=== PATIENT | male | born 1950 | race Two or more races ===

== ENCOUNTER 2021-12-31 16:49 | Emergency (ER) | payer OTHER ==
[~2021-12-31] VITALS: Ht 175.3 cm; Wt 108.9 kg
--- NOTE | 2021-12-31 17:14 | NUR ---
URINE SAMPLE SENT TO LAB
[2021-12-31 17:54] LABS: BILIRUBIN,URINE NEGATIVE (NEGATIVE); COLOR,URINE YELLOW (YELLOW); LEUKOCYTE ESTERASE ,URINE TRACE (NEGATIVE); NITRITE, URINE NEGATIVE (NEGATIVE); PROTEIN,URINE NEGATIVE (NEGATIVE); UGLUCOSE NEGATIVE (NEGATIVE); UROBILINOGEN,URINE 0.2 EU/dL (0.2)
[2021-12-31 18:06] LABS: BACTERIA,URINE None seen /HPF (None Seen); SQUAMOUS EPITHELIAL CELL,UR 0-2 /HPF (None Seen)
--- NOTE | 2021-12-31 18:32 | NUR ---
PATIENT FEELING WAY BETTER, WILL BE DISCHARGED HOME W/ SAGASTUME CATHETER AND PROVIDED W/ LEG BAG AND NEEDS TO F/U W/ UROLOGIST. DISCHARGED HOME IN STABLE CONDITION.
[2021-12-31 18:34] VITALS: BP 135/92
== END 2021-12-31 18:34 | disposition home or self-care (01) ==
LOC: ER 16:59
DX: R33.9 Retention of urine, unspecified (principal); M19.90 Unspecified osteoarthritis, unspecified site
CPT/HCPCS: 81001

== ENCOUNTER 2022-01-03 14:54 | Emergency (ER) | payer MEDICARE, OTHER ==
[~2022-01-03] VITALS: Ht 175.3 cm; Wt 86.2 kg
--- NOTE | 2022-01-03 15:53 | NUR ---
URINE COLLECTED AND SENT TO LAB
[2022-01-03 16:07] LABS: BILIRUBIN,URINE SMALL (NEGATIVE); LEUKOCYTE ESTERASE ,URINE TRACE (NEGATIVE); NITRITE, URINE NEGATIVE (NEGATIVE); PH,URINE 8.5 (5.0-8.0); PROTEIN,URINE 30 mg/dl (NEGATIVE); UGLUCOSE NEGATIVE (NEGATIVE)
[2022-01-03 16:09] LABS: COLOR,URINE AMBER (YELLOW)
[2022-01-03 16:16] LABS: BACTERIA,URINE None seen /HPF (None Seen); MUCUS,URINE Few /LPF (None Seen); RBC,URINE TOO NUMEROUS TO COUN /HPF (0-2); SQUAMOUS EPITHELIAL CELL,UR 0-2 /HPF (None Seen)
--- NOTE | 2022-01-03 17:37 | NUR ---
Patient discharged to home in stable condition. Written and verbal after care instructions given. Patient verbalizes understanding of instruction.
[2022-01-03 17:38] VITALS: BP 164/81
[2022-01-04] MEDS ORDERED: TAMS-12 PO (08:17)
[2022-01-04] MEDS ORDERED: CIPR-262 PO (08:17)
== END 2022-01-03 17:38 | disposition home or self-care (01) ==
LOC: ER 14:54
DX: T83.031A Leakage of indwelling urethral catheter, initial encounter (principal); M19.90 Unspecified osteoarthritis, unspecified site; Z79.899 Other long term (current) drug therapy; Z87.438 Personal history of other diseases of male genital organs
CPT/HCPCS: 81001

== ENCOUNTER → 2022-01-04 | Emergency (ER) | payer MEDICARE, OTHER ==
[~2022-01-04] VITALS: Ht 175.3 cm; Wt 86.2 kg
[~2022-01-04] MED LIST: CIPR-262 PO; LIDOCAINE 2% JEL UROJET 10 ML MM ONE; TAMS-12 PO
--- NOTE | 2022-01-04 06:23 | NUR ---
f/c Fr 16 inserted clear yellow urine output 450 cc
--- NOTE | 2022-01-04 06:23 | NUR ---
urine collected sent to lab
[2022-01-04 07:20] LABS: CALCIUM, SERUM 9.2 mg/dL (8.5-10.1); POTASSIUM 3.9 mmol/L (3.5-5.1)
[2022-01-04 07:40] LABS: BASOPHILS % (AUTO) 0.8 % (0.0-2.0); EOSINOPHILS % (AUTO) 4.1 % (0.0-6.0); HEMATOCRIT 39 % (39-51); HEMOGLOBIN 13.3 g/dL (13.5-17.5); LYMPHOCYTES # (AUTO) 1.7 K/uL (0.8-4.8); LYMPHOCYTES % (AUTO) 30.6 % (20.0-44.0); MEAN CORPUSCULAR HGB CONC 34 g/dl (31.0-36.0); MEAN CORPUSCULAR VOLUME 92 fL (80-96); MONOCYTES # (AUTO) 0.5 K/uL (0.1-1.30); MONOCYTES % (AUTO) 8.1 % (2.0-12.0); NEUTROPHILS # (AUTO) 3.2 K/uL (1.8-8.9); NEUTROPHILS % (AUTO) 56.4 % (43.0-81.0); PLATELET COUNT (AUTO) 175 K/uL (150-450); RED BLOOD CELL COUNT(AUTO) 4.26 MIL/uL (4.5-6.0); WHITE BLOOD COUNT (AUTO) 5.6 K/uL (4.3-11.0)
[2022-01-04 07:56] LABS: BILIRUBIN,URINE NEGATIVE (NEGATIVE); COLOR,URINE YELLOW (YELLOW); LEUKOCYTE ESTERASE ,URINE NEGATIVE (NEGATIVE); NITRITE, URINE NEGATIVE (NEGATIVE); PROTEIN,URINE NEGATIVE (NEGATIVE); UGLUCOSE NEGATIVE (NEGATIVE); UROBILINOGEN,URINE 0.2 EU/dL (0.2)
[2022-01-04 08:00] LABS: BACTERIA,URINE None seen /HPF (None Seen); RBC,URINE 21-50 /HPF (0-2); SQUAMOUS EPITHELIAL CELL,UR Rare /HPF (None Seen); WBC,URINE 0-2 /HPF (0-3)
--- NOTE | 2022-01-04 08:30 | NUR ---
vazquez bag replaced
--- NOTE | 2022-01-04 08:35 | NUR ---
Patient discharged to home in stable condition. Written and verbal after care instructions given. Patient verbalizes understanding of instruction.
[2022-01-04 08:54] VITALS: BP 148/84
== END | disposition home or self-care (01) ==
LOC: ER 05:59
DX: R33.9 Retention of urine, unspecified (principal); M19.90 Unspecified osteoarthritis, unspecified site; Z79.899 Other long term (current) drug therapy
CPT/HCPCS: 99284; 51702; 85025; 80048; 81001; 36415; J3490

== ENCOUNTER 2022-01-13 11:41 | Emergency (ER) | payer OTHER, MEDICARE ==
[~2022-01-13] VITALS: Ht 175.3 cm; Wt 87.1 kg
[~2022-01-13 11:41] MED LIST changes: -LIDOCAINE 2% JEL UROJET 10 ML MM ONE
[2022-01-13 11:58] VITALS: BP 142/88
--- NOTE | 2022-01-13 12:00 | NUR ---
BIBSELF URINE LEAKING AROUND SAGASTUME CATHETER,INTO HIS UNDERPANTS INSTEAD OF DRAINING INTO SAGASTUME BAG
[2022-01-13] MEDS ORDERED: CIPR500T5 PO (12:07)
--- NOTE | 2022-01-13 12:09 | NUR ---
F.CATHETER REMOVED , URINE SAMPLE OBTAINED LABELED AND SENT TO LAB
--- NOTE | 2022-01-13 12:14 | NUR ---
Patient discharged to home in stable condition. Written and verbal after care instructions given. Patient verbalizes understanding of instruction.
[2022-01-13 12:23] LABS: BILIRUBIN,URINE 2+ (NEGATIVE); COLOR,URINE DARK YELLOW (YELLOW); LEUKOCYTE ESTERASE ,URINE 2+ (NEGATIVE); NITRITE, URINE POSITIVE (NEGATIVE); PROTEIN,URINE 3+ mg/dl (NEGATIVE); UGLUCOSE NEGATIVE (NEGATIVE)
[2022-01-13 12:43] LABS: BACTERIA,URINE Many /HPF (None Seen); CALCIUM OXALATE CRYSTALS,UR Few /HPF (None Seen); RBC,URINE 21-50 /HPF (0-2); SQUAMOUS EPITHELIAL CELL,UR Few /HPF (None Seen)
== END 2022-01-13 12:16 | disposition home or self-care (01) ==
LOC: ER 11:45
DX: T83.9XXA Unspecified complication of genitourinary prosthetic device, implant and graft, initial encounter (principal); R10.2 Pelvic and perineal pain; M19.90 Unspecified osteoarthritis, unspecified site
CPT/HCPCS: 81001; 87086-TC; 87186-TC

== ENCOUNTER 2022-05-12 22:13 | Emergency (ER) | payer MEDICARE, OTHER ==
[~2022-05-12] VITALS: Ht 172.7 cm; Wt 112.5 kg
[~2022-05-12 22:13] MED LIST changes: +CIPR500T5 PO
[2022-05-12] MEDS ORDERED: LIDOCAINE 2% JEL UROJET 10 ML MM ONE ×2 (22:21→22:30)
[2022-05-12 22:24] VITALS: BP 167/140
--- NOTE | 2022-05-12 22:28 | NUR ---
PT BIBSELF C/O URINARY RETENTION SINCE 190 THIS EVENING. PT AAOX4 BREATHING EVENLY AND UNLABORED. PT STATES THAT MOST OF THE DAY HE WAS FEELING WELL AND THEN "SUDDENLY HE WAS UNABLE TO URINATE" PT DOES HAVE BILATERAL LEG SWELLING AND IS HYPERTENSIVE. MD AWARE. PT ATTACHED TO MONITOR AND POX. WILL CONTINUE TO MONITOR.
--- NOTE | 2022-05-12 22:34 | NUR ---
URINE SENT TO LAB
--- NOTE | 2022-05-12 22:40 | NUR ---
800ML URINARY OUTPUT. AWARE.
[2022-05-12 22:51] LABS: BILIRUBIN,URINE NEGATIVE (NEGATIVE); COLOR,URINE OTHER (YELLOW); LEUKOCYTE ESTERASE ,URINE NEGATIVE (NEGATIVE); NITRITE, URINE NEGATIVE (NEGATIVE); PH,URINE 5.5 (5.0-8.0); PROTEIN,URINE NEGATIVE (NEGATIVE); UGLUCOSE NEGATIVE (NEGATIVE); UROBILINOGEN,URINE 0.2 EU/dL (0.2)
--- NOTE | 2022-05-12 23:22 | NUR ---
Patient discharged to home in stable condition. Written and verbal after care instructions given. Patient verbalizes understanding of instruction. pT ambulatory with a steady gait. PT SENT HOME WITH INDWELLING SAGASTUME CATH AND LEG BAG. PT EDUCATED HOW TO EMPTY LEG BAG.
[2022-05-12 23:52] LABS: BACTERIA,URINE Rare /HPF (None Seen); RBC,URINE 21-50 /HPF (0-2); SQUAMOUS EPITHELIAL CELL,UR Rare /HPF (None Seen); WBC,URINE 0-2 /HPF (0-3)
== END 2022-05-12 23:22 | disposition home or self-care (01) ==
LOC: ER 22:15
DX: N40.1 Benign prostatic hyperplasia with lower urinary tract symptoms (principal); R33.9 Retention of urine, unspecified; Z79.899 Other long term (current) drug therapy
CPT/HCPCS: 99284; 51702; 81001; J3490

== ENCOUNTER 2022-05-17 21:57 | Emergency (ER) | payer MEDICARE ==
[~2022-05-17] VITALS: Ht 175.3 cm; Wt 86.2 kg
[2022-05-17 23:50] VITALS: BP 140/91
[2022-05-18 01:20] LABS: BILIRUBIN,URINE 1+ (NEGATIVE); COLOR,URINE RED (YELLOW); LEUKOCYTE ESTERASE ,URINE TRACE (NEGATIVE); NITRITE, URINE POSITIVE (NEGATIVE); PROTEIN,URINE 3+ mg/dl (NEGATIVE); UGLUCOSE TRACE mg/dL (NEGATIVE)
[2022-05-18 01:23] LABS: BACTERIA,URINE Few /HPF (None Seen); RBC,URINE TOO NUMEROUS TO COUN /HPF (0-2); SQUAMOUS EPITHELIAL CELL,UR Few /HPF (None Seen)
[2022-05-18] MEDS ORDERED: CEPH500C2 PO (01:33)
[2022-05-18] MEDS ORDERED: CEPHALEXIN MONOHYDRATE 500 MG CAPSULE PO ONE ×2 (01:37→02:00)
== END 2022-05-18 02:09 | disposition home or self-care (01) ==
LOC: ER 22:01
DX: T83.098A Other mechanical complication of other urinary catheter, initial encounter (principal); N39.0 Urinary tract infection, site not specified; Z79.899 Other long term (current) drug therapy
CPT/HCPCS: 81001; 87086-TC

== ENCOUNTER 2022-05-28 17:51 | Emergency (ER) | payer MEDICARE ==
[~2022-05-28] VITALS: Ht 175.3 cm; Wt 87.5 kg
[~2022-05-28 17:51] MED LIST changes: +CEPH500C2 PO
[2022-05-28 18:23] VITALS: BP 146/75
--- NOTE | 2022-05-29 00:37 | NUR ---
Patient discharged to home in stable condition. Written and verbal after care instructions given. Patient verbalizes understanding of instruction.
== END 2022-05-29 00:38 | disposition home or self-care (01) ==
LOC: ER 17:56
DX: Z44.8 Encounter for fitting and adjustment of other external prosthetic devices (principal); N40.1 Benign prostatic hyperplasia with lower urinary tract symptoms; Z79.899 Other long term (current) drug therapy

== ENCOUNTER 2023-01-26 04:18 | Emergency (ER) | payer MEDICARE ==
[~2023-01-26] VITALS: Ht 177.8 cm; Wt 90.7 kg
[2023-01-26 04:26] VITALS: BP 154/88; TEMP 98.8
[2023-01-26] MEDS ORDERED: KETOROLAC TROMETHAMINE 15 MG/ML VIAL IV ONE (05:00)
[2023-01-26] MEDS ORDERED: LIDOCAINE VISCOUS 2% UD 15 ML UDC MM ONE (05:00)
[2023-01-26] MEDS ORDERED: MAG HYDROX/AL HYDROX/SIMETH 30 ML UDC PO ONE (05:00)
[2023-01-26] MEDS ORDERED: FAMOTIDINE/PF INJ 20 MG/2 ML VIAL IV ONE (05:00)
[2023-01-26] MEDS ORDERED: IV NS 0.9% 1,000 ML BAG IV ONE (05:00)
[2023-01-26 05:01] VITALS: O2SAT 98
[2023-01-26 05:09] LABS: APPEARANCE,URINE CLEAR (CLEAR); BILIRUBIN,URINE NEGATIVE (NEGATIVE); BLOOD, URINE NEGATIVE Ery/uL (NEGATIVE); COLOR,URINE YELLOW (YELLOW); KETONES,URINE NEGATIVE (NEGATIVE); LEUKOCYTE ESTERASE ,URINE NEGATIVE (NEGATIVE); NITRITE, URINE NEGATIVE (NEGATIVE); PROTEIN,URINE NEGATIVE (NEGATIVE); UGLUCOSE NEGATIVE (NEGATIVE); UROBILINOGEN,URINE 0.2 EU/dL (0.2)
[2023-01-26] MEDS ORDERED: FINA5TAB11 PO (05:20)
== END 2023-01-26 05:01 | disposition home or self-care (01) ==
LOC: ER 04:20
DX: R33.9 Retention of urine, unspecified (principal); N40.0 Benign prostatic hyperplasia without lower urinary tract symptoms; F17.200 Nicotine dependence, unspecified, uncomplicated; Z79.899 Other long term (current) drug therapy

== ENCOUNTER 2023-02-07 22:25 | Emergency (ER) | payer MEDICARE ==
[~2023-02-07] VITALS: Ht 177.8 cm; Wt 90.7 kg
[~2023-02-07 22:25] MED LIST changes: +FINA5TAB11 PO
[2023-02-08 02:06] LABS: APPEARANCE,URINE TURBID (CLEAR); BILIRUBIN,URINE NEGATIVE (NEGATIVE); BLOOD, URINE 3+ Ery/uL (NEGATIVE); COLOR,URINE DARK YELLOW (YELLOW); KETONES,URINE NEGATIVE (NEGATIVE); LEUKOCYTE ESTERASE ,URINE 2+ (NEGATIVE); NITRITE, URINE POSITIVE (NEGATIVE); PROTEIN,URINE 3+ mg/dl (NEGATIVE); UGLUCOSE NEGATIVE (NEGATIVE)
[2023-02-08 02:07] LABS: ADD URINE CULTURE YES; BACTERIA,URINE Many /HPF (None Seen); SQUAMOUS EPITHELIAL CELL,UR Few /HPF (None Seen); WBC,URINE TOO NUMEROUS TO COUN /HPF (0-3)
[2023-02-08] MEDS ORDERED: CEFD300C3 PO (02:24)
[2023-02-08] MEDS ORDERED: CEFTRIAXONE 1GM BAG (ER ONLY) 1 GM/50 ML PIGGYBACK IV ONE (02:30)
[2023-02-08] MEDS ORDERED: CEFTRIAXONE 1GM BAG (ER ONLY) 50 ML IV ONE (02:37)
[2023-02-08 03:57] VITALS: BP 136/78; TEMP 98.6; O2SAT 99
== END 2023-02-08 03:58 | disposition home or self-care (01) ==
LOC: ER 22:36
DX: N39.0 Urinary tract infection, site not specified (principal); N40.0 Benign prostatic hyperplasia without lower urinary tract symptoms; F17.200 Nicotine dependence, unspecified, uncomplicated; Z79.899 Other long term (current) drug therapy
CPT/HCPCS: 99284; 96365; 87086; 81001; J7030; J0696

== ENCOUNTER 2023-02-16 23:19 | Emergency (ER) | payer MEDICARE ==
[~2023-02-16] VITALS: Ht 172.7 cm; Wt 95.3 kg
[~2023-02-16 23:19] MED LIST changes: +CEFD300C3 PO
[2023-02-17 00:32] LABS: BASOPHILS % (AUTO) 0.4 % (0.0-2.0); EOSINOPHILS # (AUTO) 0.1 K/uL (0.0-0.7); HEMATOCRIT 43 % (39-51); HEMOGLOBIN 14.3 g/dL (13.5-17.5); LYMPHOCYTES # (AUTO) 0.7 K/uL (0.8-4.8); LYMPHOCYTES % (AUTO) 8.9 % (20.0-44.0); MEAN CORPUSCULAR HEMOGLOBIN 31 PG (26.0-33.0); MEAN CORPUSCULAR HGB CONC 34 g/dl (31.0-36.0); MEAN CORPUSCULAR VOLUME 93 fL (80-96); MONOCYTES # (AUTO) 0.1 K/uL (0.1-1.30); MONOCYTES % (AUTO) 1.3 % (2.0-12.0); NEUTROPHILS # (AUTO) 6.6 K/uL (1.8-8.9); NEUTROPHILS % (AUTO) 88.4 % (43.0-81.0); PLATELET COUNT (AUTO) 163 K/uL (150-450); RED BLOOD CELL COUNT(AUTO) 4.59 MIL/uL (4.5-6.0); RED CELL DISTRIBUTION WIDTH 13.9 % (11.5-15.0); WHITE BLOOD COUNT (AUTO) 7.4 K/uL (4.3-11.0)
[2023-02-17 00:33] LABS: APPEARANCE,URINE TURBID (CLEAR); BILIRUBIN,URINE 1+ (NEGATIVE); BLOOD, URINE 3+ Ery/uL (NEGATIVE); COLOR,URINE AMBER (YELLOW); KETONES,URINE NEGATIVE (NEGATIVE); LEUKOCYTE ESTERASE ,URINE TRACE (NEGATIVE); NITRITE, URINE NEGATIVE (NEGATIVE); PH,URINE 6.5 (5.0-8.0); PROTEIN,URINE 2+ mg/dl (NEGATIVE); UGLUCOSE NEGATIVE (NEGATIVE)
[2023-02-17 00:36] LABS: ADD URINE CULTURE NO; BACTERIA,URINE Few /HPF (None Seen); CALCIUM, SERUM 9.5 mg/dL (8.5-10.1); CREATININE 0.7 mg/dL (0.6-1.3); POTASSIUM 4.1 mmol/L (3.5-5.1); SQUAMOUS EPITHELIAL CELL,UR Rare /HPF (None Seen)
[2023-02-17 00:42] LABS: BILIRUBIN,DIRECT 0.3 mg/dL (0.0-0.2); TOTAL PROTEIN, SERUM 7.6 g/dL (6.4-8.2)
[2023-02-17] MEDS ORDERED: CIPROFLOXACIN HCL 500 MG TABLET PO ONE (04:00)
[2023-02-17] MEDS ORDERED: CIPROFLOXACIN HCL 500 MG TABLET ONE (04:06)
[2023-02-17] MEDS ORDERED: CIPR-262 PO (04:15)
[2023-02-17 04:48] VITALS: BP 136/87; TEMP 98; O2SAT 100
== END 2023-02-17 04:48 | disposition home or self-care (01) ==
LOC: ER 23:30
DX: N39.0 Urinary tract infection, site not specified (principal); I10 Essential (primary) hypertension; N40.0 Benign prostatic hyperplasia without lower urinary tract symptoms; F17.200 Nicotine dependence, unspecified, uncomplicated; Z79.899 Other long term (current) drug therapy
CPT/HCPCS: 36415; 80048-TC; 80076-TC; 81001; 85025-TC; 87086-TC

== ENCOUNTER 2023-05-26 19:50 | Emergency (ER) | payer MEDICARE ==
[~2023-05-26] VITALS: Ht 172.7 cm; Wt 64.9 kg
[2023-05-26 21:28] VITALS: TEMP 98.8
[2023-05-26] MEDS ORDERED: TAMS-12 PO (21:53)
[2023-05-26 22:32] LABS: APPEARANCE,URINE CLEAR (CLEAR); BILIRUBIN,URINE NEGATIVE (NEGATIVE); BLOOD, URINE 1+ Ery/uL (NEGATIVE); COLOR,URINE YELLOW (YELLOW); KETONES,URINE NEGATIVE (NEGATIVE); LEUKOCYTE ESTERASE ,URINE NEGATIVE (NEGATIVE); NITRITE, URINE NEGATIVE (NEGATIVE); PH,URINE 5.5 (5.0-8.0); PROTEIN,URINE NEGATIVE (NEGATIVE); UGLUCOSE NEGATIVE (NEGATIVE); UROBILINOGEN,URINE 0.2 EU/dL (0.2)
[2023-05-26 22:35] LABS: ADD URINE CULTURE NO; BACTERIA,URINE Rare /HPF (None Seen); SQUAMOUS EPITHELIAL CELL,UR Few /HPF (None Seen); WBC,URINE 0-2 /HPF (0-3)
[2023-05-26 23:06] VITALS: BP 138/71; O2SAT 96
== END 2023-05-26 23:06 | disposition home or self-care (01) ==
LOC: ER 19:52
DX: N40.0 Benign prostatic hyperplasia without lower urinary tract symptoms (principal); R33.9 Retention of urine, unspecified; I10 Essential (primary) hypertension; M19.90 Unspecified osteoarthritis, unspecified site; F17.200 Nicotine dependence, unspecified, uncomplicated; Z79.899 Other long term (current) drug therapy
CPT/HCPCS: 81001

== ENCOUNTER 2023-09-17 05:24 | Emergency (ER) | payer MEDICARE ==
[~2023-09-17] VITALS: Ht 167.6 cm; Wt 113.4 kg
[2023-09-17 05:56] VITALS: TEMP 98.6
[2023-09-17 07:11] LABS: BASOPHILS % (AUTO) 0.9 % (0.0-2.0); EOSINOPHILS # (AUTO) 0.1 K/uL (0.0-0.7); EOSINOPHILS % (AUTO) 2.6 % (0.0-6.0); HEMATOCRIT 37 % (39-51); HEMOGLOBIN 12.7 g/dL (13.5-17.5); LYMPHOCYTES # (AUTO) 1.3 K/uL (0.8-4.8); LYMPHOCYTES % (AUTO) 24.8 % (20.0-44.0); MEAN CORPUSCULAR HEMOGLOBIN 32 PG (26.0-33.0); MEAN CORPUSCULAR HGB CONC 34 g/dl (31.0-36.0); MEAN CORPUSCULAR VOLUME 93 fL (80-96); MONOCYTES # (AUTO) 0.4 K/uL (0.1-1.30); MONOCYTES % (AUTO) 8.2 % (2.0-12.0); NEUTROPHILS # (AUTO) 3.4 K/uL (1.8-8.9); NEUTROPHILS % (AUTO) 63.5 % (43.0-81.0); PLATELET COUNT (AUTO) 113 K/uL (150-450); RED BLOOD CELL COUNT(AUTO) 4.02 MIL/uL (4.5-6.0); RED CELL DISTRIBUTION WIDTH 14.6 % (11.5-15.0); WHITE BLOOD COUNT (AUTO) 5.4 K/uL (4.3-11.0)
[2023-09-17 07:14] LABS: CALCIUM, SERUM 8.8 mg/dL (8.5-10.1); CARBON DIOXIDE 29 mmol/L (21-32); CHLORIDE 108 mmol/L (98-107); CREATININE 0.8 mg/dL (0.6-1.3); GLUCOSE 122 mg/dL (74-106); POTASSIUM 4.2 mmol/L (3.5-5.1); SODIUM SERUM 144 mmol/L (136-145); UREA NITROGEN, BLOOD 11 mg/dL (7-18)
[2023-09-17 07:37] LABS: APPEARANCE,URINE SLIGHTLY CLOUDY (CLEAR); BILIRUBIN,URINE NEGATIVE (NEGATIVE); BLOOD, URINE 3+ Ery/uL (NEGATIVE); COLOR,URINE YELLOW (YELLOW); KETONES,URINE NEGATIVE (NEGATIVE); LEUKOCYTE ESTERASE ,URINE NEGATIVE (NEGATIVE); NITRITE, URINE NEGATIVE (NEGATIVE); PROTEIN,URINE TRACE mg/dl (NEGATIVE); UGLUCOSE NEGATIVE (NEGATIVE)
[2023-09-17 08:02] LABS: ADD URINE CULTURE YES; BACTERIA,URINE None seen /HPF (None Seen); RBC,URINE TOO NUMEROUS TO COUN /HPF (0-2)
[2023-09-17 08:04] LABS: TRICHOMONAS,URINE None Seen /HPF (None Seen); YEAST,URINE None Seen /HPF (None Seen)
[2023-09-17 08:05] LABS: FINE GRANULAR CASTS,URINE Few /LPF (None Seen); RED BLOOD CELL CASTS,URINE Few /LPF (None Seen)
[2023-09-17] MEDS ORDERED: PHEN-704 PO (08:28)
[2023-09-17] MEDS ORDERED: CEFD300C3 PO (08:41)
[2023-09-17] MEDS ORDERED: SULF1TAB48 PO (08:41)
[2023-09-17 09:19] VITALS: BP 136/87; O2SAT 98
== END 2023-09-17 09:03 | disposition home or self-care (01) ==
LOC: ER 05:32
DX: N40.0 Benign prostatic hyperplasia without lower urinary tract symptoms (principal); R33.9 Retention of urine, unspecified; I11.0 Hypertensive heart disease with heart failure; I50.9 Heart failure, unspecified; M19.90 Unspecified osteoarthritis, unspecified site; F17.200 Nicotine dependence, unspecified, uncomplicated
CPT/HCPCS: 36415; 80048-TC; 81001; 85025-TC

== ENCOUNTER 2023-09-26 20:41 | Emergency (ER) | payer MEDICARE ==
[~2023-09-26] VITALS: Ht 170.2 cm; Wt 99.8 kg
[~2023-09-26 20:41] MED LIST changes: +PHEN-704 PO; +SULF1TAB48 PO
[2023-09-26 21:39] LABS: COLOR,URINE RED (YELLOW)
[2023-09-26 21:40] LABS: APPEARANCE,URINE TURBID (CLEAR)
[2023-09-26 21:49] LABS: BACTERIA,URINE 1+ /HPF (None Seen); CALCIUM OXALATE CRYSTALS,UR Rare /HPF (None Seen); RBC,URINE 81-100 /HPF (0-2); SQUAMOUS EPITHELIAL CELL,UR None Seen /HPF (None Seen); WBC,URINE 0-2 /HPF (0-3)
[2023-09-26 21:50] LABS: MUCUS,URINE Rare /LPF (None Seen)
[2023-09-26 22:26] LABS: APPEARANCE,URINE TURBID (CLEAR); BILIRUBIN,URINE NEGATIVE (NEGATIVE); BLOOD, URINE 3+ Ery/uL (NEGATIVE); COLOR,URINE RED (YELLOW); KETONES,URINE NEGATIVE (NEGATIVE); LEUKOCYTE ESTERASE ,URINE TRACE (NEGATIVE); NITRITE, URINE NEGATIVE (NEGATIVE); PROTEIN,URINE 2+ mg/dl (NEGATIVE); UGLUCOSE NEGATIVE (NEGATIVE)
[2023-09-26 22:35] LABS: ADD URINE CULTURE NO; BACTERIA,URINE 1+ /HPF (None Seen); RBC,URINE TOO NUMEROUS TO COUN /HPF (0-2); WBC,URINE 0-2 /HPF (0-3)
[2023-09-26 22:36] LABS: SQUAMOUS EPITHELIAL CELL,UR None Seen /HPF (None Seen)
[2023-09-26 23:27] VITALS: BP 122/91; TEMP 98; O2SAT 98
== END 2023-09-26 23:28 | disposition home or self-care (01) ==
LOC: ER 20:42
DX: T83.83XA Hemorrhage due to genitourinary prosthetic devices, implants and grafts, initial encounter (principal); I11.0 Hypertensive heart disease with heart failure; I50.9 Heart failure, unspecified; F17.200 Nicotine dependence, unspecified, uncomplicated; Z79.899 Other long term (current) drug therapy; Y92.89 Other specified places as the place of occurrence of the external cause
CPT/HCPCS: 81001

== ENCOUNTER 2023-12-13 20:28 | Emergency (ER) | payer MEDICARE ==
[~2023-12-13] VITALS: Ht 167.6 cm; Wt 111.1 kg
[2023-12-13 22:03] VITALS: TEMP 98.3
[2023-12-13 22:40] LABS: BASOPHILS # (AUTO) 0.1 K/uL (0.0-0.2); BASOPHILS % (AUTO) 1.3 % (0.0-2.0); EOSINOPHILS # (AUTO) 0.1 K/uL (0.0-0.7); EOSINOPHILS % (AUTO) 2.1 % (0.0-6.0); HEMATOCRIT 35 % (39-51); HEMOGLOBIN 11.9 g/dL (13.5-17.5); LYMPHOCYTES # (AUTO) 1.6 K/uL (0.8-4.8); LYMPHOCYTES % (AUTO) 23.2 % (20.0-44.0); MEAN CORPUSCULAR HEMOGLOBIN 31 PG (26.0-33.0); MEAN CORPUSCULAR HGB CONC 34 g/dl (31.0-36.0); MEAN CORPUSCULAR VOLUME 92 fL (80-96); MONOCYTES # (AUTO) 0.6 K/uL (0.1-1.30); MONOCYTES % (AUTO) 8.7 % (2.0-12.0); NEUTROPHILS # (AUTO) 4.4 K/uL (1.8-8.9); NEUTROPHILS % (AUTO) 64.7 % (43.0-81.0); PLATELET COUNT (AUTO) 170 K/uL (150-450); RED BLOOD CELL COUNT(AUTO) 3.81 MIL/uL (4.5-6.0); RED CELL DISTRIBUTION WIDTH 14.8 % (11.5-15.0); WHITE BLOOD COUNT (AUTO) 6.7 K/uL (4.3-11.0)
[2023-12-13] MEDS ORDERED: PIPERACI/TAZO 3.375GM/D5W 50ML PB IV ONE (22:42)
[2023-12-13] MEDS ORDERED: VANCOMYCIN 1 GM /D5W 250 ML PB IV ONE (22:42)
[2023-12-13 22:55] LABS: ALANINE AMINOTRANSFERASE 18 U/L (12-78); ALBUMIN 3.3 g/dL (3.4-5.0); ALKALINE PHOSPHATASE 152 U/L (46-116); ASPARTATE AMINOTRANSFERASE 15 U/L (15-37); BILIRUBIN,DIRECT 0.5 mg/dL (0.0-0.2); BILIRUBIN,TOTAL 0.9 mg/dL (0.2-1.0); CALCIUM, SERUM 9.2 mg/dL (8.5-10.1); CARBON DIOXIDE 28 mmol/L (21-32); CHLORIDE 112 mmol/L (98-107); CREATININE 0.9 mg/dL (0.6-1.3); GLUCOSE 110 mg/dL (74-106); POTASSIUM 3.9 mmol/L (3.5-5.1); SODIUM SERUM 144 mmol/L (136-145); UREA NITROGEN, BLOOD 15 mg/dL (7-18)
[2023-12-13 23:04] LABS: APPEARANCE,URINE CLEAR (CLEAR); BILIRUBIN,URINE 1+ (NEGATIVE); BLOOD, URINE 3+ Ery/uL (NEGATIVE); COLOR,URINE DARK YELLOW (YELLOW); KETONES,URINE NEGATIVE (NEGATIVE); LEUKOCYTE ESTERASE ,URINE NEGATIVE (NEGATIVE); NITRITE, URINE NEGATIVE (NEGATIVE); PROTEIN,URINE 2+ mg/dl (NEGATIVE); UGLUCOSE NEGATIVE (NEGATIVE)
[2023-12-13] MEDS: PIPERACILLIN /TAZOBACTAM 3.375 G in IV D5W 50 ML IV ONE (23:15)
[2023-12-13 23:20] LABS: RBC,URINE 81-100 /HPF (0-2)
[2023-12-13 23:21] LABS: ADD URINE CULTURE NO; BACTERIA,URINE 1+ /HPF (None Seen); CALCIUM OXALATE CRYSTALS,UR Rare /HPF (None Seen); MUCUS,URINE Moderate /LPF (None Seen); SQUAMOUS EPITHELIAL CELL,UR 0-2 /HPF (None Seen); WBC,URINE NONE SEEN /HPF (0-3)
[2023-12-14] MEDS: VANCOMYCIN 1 GM in IV D5W 250 ML IV ONE (00:50)
[2023-12-14] MEDS ORDERED: MORPHINE SULFATE INJ 2 MG/ML DISP.SYRIN ONE ×2 (03:43→05:49)
[2023-12-14] MEDS: MORPHINE SULFATE INJ 2 MG/ML DISP.SYRIN IV ONE ×2 (03:44→05:52)
[2023-12-14 06:45] VITALS: BP 139/88; O2SAT 98
== END 2023-12-14 06:55 | disposition short-term general hospital (02) ==
LOC: ER 20:37
DX: L03.116 Cellulitis of left lower limb (principal); L03.115 Cellulitis of right lower limb; I11.0 Hypertensive heart disease with heart failure; I50.9 Heart failure, unspecified; N40.1 Benign prostatic hyperplasia with lower urinary tract symptoms; M19.90 Unspecified osteoarthritis, unspecified site; F17.200 Nicotine dependence, unspecified, uncomplicated; Z20.822 Contact with and (suspected) exposure to COVID-19
CPT/HCPCS: 99285; 96365; 87426; 73590 ×2; 85025; 80048; 87040; 87086; 80076; 85652; 81001; 36415; 86140; 96367; 96375; 96376; J3370 ×2; J2543 ×2; J7060; J2270 ×2; A4223

== ENCOUNTER → 2023-12-23 | Emergency (ER) | payer MEDICARE ==
[~2023-12-23] VITALS: Ht 175.3 cm; Wt 79.4 kg
[2023-12-23 23:18] VITALS: BP 149/73; TEMP 98.5; O2SAT 98
== END | disposition left against medical advice (07) ==
LOC: ER 20:57
DX: R33.9 Retention of urine, unspecified (principal); I11.0 Hypertensive heart disease with heart failure; I50.9 Heart failure, unspecified; M19.90 Unspecified osteoarthritis, unspecified site; F17.200 Nicotine dependence, unspecified, uncomplicated; Z79.899 Other long term (current) drug therapy